=== PATIENT | female | born 1990 | race Caucasian/White ===

== ENCOUNTER 2017-03-05 13:09 | Inpatient (IN) ==
[2017-03-05] MEDS ORDERED: ACETAMINOPHEN 325 MG TABLET PO PRN (13:18)
[2017-03-05] MEDS ORDERED: ONDANSETRON 4 MG/2 ML VIAL IV PRN (13:18)
[2017-03-05] MEDS ORDERED: MORPHINE 2 MG/1 ML SYRINGE IV PRN (13:23)
[2017-03-05] MEDS: SODIUM CHLORIDE 0.9% 1,000 ML IV SCH (17:30)
[2017-03-05] MEDS: CIPROFLOXACIN INJ 400 MG in PREMIX 1 EACH IV SCH (17:31)
[2017-03-05] MEDS ORDERED: PANTOPRAZOLE 40 MG VIAL IV ONE (18:30)
[2017-03-05] MEDS: metroNIDAZOLE INJ 500 MG in PREMIX 1 EACH IV SCH (18:42)
[2017-03-05] MEDS: HYDROmorphone 2 MG/1 ML VIAL IV PRN ×2 (18:43→21:22)
[2017-03-05] MEDS: PANTOPRAZOLE 40 MG VIAL IV SCH (21:08)
[2017-03-05] MEDS: DOCUSATE SODIUM 100 MG CAPSULE PO SCH (21:12)
[2017-03-06] MEDS: metroNIDAZOLE INJ 500 MG in PREMIX 1 EACH IV SCH ×3 (00:28→17:25)
[2017-03-06] MEDS: SODIUM CHLORIDE 0.9% 1,000 ML IV SCH ×4 (00:29→17:27)
[2017-03-06] MEDS: HYDROmorphone 2 MG/1 ML VIAL IV PRN ×2 (01:45→06:44)
[2017-03-06] MEDS: CIPROFLOXACIN INJ 400 MG in PREMIX 1 EACH IV SCH ×2 (03:43→16:49)
[2017-03-06 07:16] LABS: Basophils # 0.1 10*3/uL (0.0-0.2); Basophils % 0.5 % (0.0-0.8); Eosinophils # 0.2 10*3/uL (0.0-0.87); Eosinophils % 1.6 % (0.00-10.9); Hematocrit 43.6 VOL% (35.7-47.0); Hemoglobin 13.1 GM/DL (12.0-16.0); Immature Granulocytes % 1.2 %; Immature Granulocytes Absolute 0.15 #; Lymphocytes # 2.4 10*3/uL (1.4-4.0); Lymphocytes % 19.7 % (21.3-54.2); Mean Corpuscular Hemoglobin 24 PG (27-34); Mean Corpuscular Volume 79.3 FL (87-102); Mean Platelet Volume 10.1 FL (9.6-12.0); Monocytes # 0.7 10*3/uL (0.11-0.8); Monocytes % 5.5 % (1.7-12.7); Neutrophils # 8.8 10*3/uL (1.4-7.4); Neutrophils % 71.5 % (38.7-73.9); Platelet Count 235 T/CUMM (130-400); Red Cell Distribution Width 15.9 % (9.3-17.3); White Blood Count 12.3 T/CUMM (4-12)
[2017-03-06 07:18] LABS: Calcium 8.5 MG/DL (8.5-10.1); Osmolality,Calculated 280.1 MOS/KG (273-304); Potassium 4.3 MMOL/L (3.5-5.1)
[2017-03-06 07:26] LABS: Band Neutrophils 8 % (0-10); Eosinophils 5 % (0-10); Lymphocytes 19 % (20-55); Nucleated Red Blood Cells 1 (0-5); Segmented Neutrophils 61 % (50-85); Total Cells Counted 100
[2017-03-06 07:27] LABS: Anisocytosis 1+; Poikilocytosis 1+
[2017-03-06 07:28] LABS: Hypochromasia 1+
[2017-03-06] MEDS ORDERED: traMADol 50 MG TABLET PO PRN (08:09)
[2017-03-06] MEDS ORDERED: PANTOPRAZOLE 40 MG TABLET PO SCH (09:00)
[2017-03-06] MEDS: DOCUSATE SODIUM 100 MG CAPSULE PO SCH ×2 (10:04→21:46)
[2017-03-06] MEDS: KETOROLAC 30 MG/1 ML VIAL IV PRN ×2 (10:11→17:26)
[2017-03-06 15:53] LABS: Apearance,Urine Slightly Hazy (Clear); Bilirubin,Urine Negative (Negative); Blood, Urine Negative (Negative); Glucose,Urine (UA) Negative (Negative); Ketones,Urine Negative (Negative); Nitrite,Urine Negative (Negative); Protein,Urine Negative; RBC,Urine 1 /HPF (0-4); Squamous Epithelial Cell,Urine Occasional /HPF (0-10); Urine Color Yellow (Yellow); Urine Specific Gravity 1.015 (1.001-1.035); Urine Urobilinogen < 2.0 EU/DL (0.2-1.0); WBC,Urine 1 /HPF (0-6)
[2017-03-06] MEDS: PANTOPRAZOLE 40 MG VIAL IV SCH (21:45)
[2017-03-07] MEDS: SODIUM CHLORIDE 0.9% 1,000 ML IV SCH ×2 (00:39→04:11)
[2017-03-07] MEDS: KETOROLAC 30 MG/1 ML VIAL IV PRN (00:40)
[2017-03-07] MEDS: metroNIDAZOLE INJ 500 MG in PREMIX 1 EACH IV SCH ×2 (00:42→10:06)
[2017-03-07] MEDS: CIPROFLOXACIN INJ 400 MG in PREMIX 1 EACH IV SCH (04:27)
[2017-03-07 05:36] LABS: Basophils # 0.1 10*3/uL (0.0-0.2); Basophils % 0.5 % (0.0-0.8); Eosinophils # 0.2 10*3/uL (0.0-0.87); Eosinophils % 1.8 % (0.00-10.9); Hematocrit 35.6 VOL% (35.7-47.0); Hemoglobin 10.6 GM/DL (12.0-16.0); Immature Granulocytes % 1.2 %; Immature Granulocytes Absolute 0.15 #; Lymphocytes # 3.1 10*3/uL (1.4-4.0); Lymphocytes % 24.4 % (21.3-54.2); Mean Corpuscular HGB Conc 29.8 GM/DL (32-36); Mean Corpuscular Hemoglobin 24 PG (27-34); Mean Corpuscular Volume 79.3 FL (87-102); Mean Platelet Volume 9.4 FL (9.6-12.0); Monocytes # 0.7 10*3/uL (0.11-0.8); Monocytes % 5.7 % (1.7-12.7); Neutrophils # 8.3 10*3/uL (1.4-7.4); Neutrophils % 66.4 % (38.7-73.9); Platelet Count 433 T/CUMM (130-400); Red Blood Count 4.49 MC/CUMM (3.8-5.5); Red Cell Distribution Width 15.4 % (9.3-17.3); White Blood Count 12.5 T/CUMM (4-12)
[2017-03-07 06:00] LABS: Calcium 8.2 MG/DL (8.5-10.1); Osmolality,Calculated 282.1 MOS/KG (273-304); Potassium 4.5 MMOL/L (3.5-5.1)
[2017-03-07] MEDS: DOCUSATE SODIUM 100 MG CAPSULE PO SCH (10:06)
[2017-03-07] MEDS ORDERED: FLUCONAZOLE 100 MG TABLET PO SCH (11:30)
[2017-03-07 11:53] VITALS: BP 134/61
== END 2017-03-07 13:55 | disposition home or self-care (01) | DRG 392 ==
LOC: N.2E 14:43
PROVIDERS: ADMIT Internal Medicine; ATTEND Internal Medicine

== ENCOUNTER 2020-08-03 10:25 | Inpatient (IN) ==
[2020-08-03] MEDS ORDERED: LACTATED RINGERS 1,000 ML IV PRN (15:20)
[2020-08-03] MEDS ORDERED: ONDANSETRON 4 MG/2 ML VIAL IV PRN (15:20)
[2020-08-03 15:54] LABS: Basophils # 0.1 10*3/uL (0.0-0.2); Basophils % 0.4 % (0.0-0.8); Eosinophils # 0.1 10*3/uL (0.0-0.87); Eosinophils % 0.7 % (0.00-10.9); Hematocrit 36.9 VOL% (35.7-47.0); Hemoglobin 11.7 GM/DL (12.0-16.0); Immature Granulocytes % 1.3 %; Immature Granulocytes Absolute 0.24 #; Mean Corpuscular HGB Conc 31.7 GM/DL (32-36); Mean Corpuscular Volume 83.3 FL (87-102); Monocytes % 7.4 % (1.7-12.7); Neutrophils % 74.2 % (38.7-73.9); Platelet Count 366 T/CUMM (130-400); Red Blood Count 4.43 MC/CUMM (3.8-5.5); Red Cell Distribution Width 14.9 % (9.3-17.3); White Blood Count 18.5 T/CUMM (4-12)
[2020-08-03 15:56] LABS: Bilirubin,Direct 0.1 MG/DL (0.0-0.20); Uric Acid 5.7 MG/DL (2.6-6.0)
[2020-08-03 16:08] LABS: Alanine Aminotransferase 27 U/L (13-56); Albumin 2.7 G/DL (3.4-5.0); Alkaline Phosphatase 91 U/L (45-117); Aspartate Amino Transferase 12 U/L (0-37); Bilirubin,Total < 0.39 MG/DL (0.2-1.0); Blood Urea Nitrogen 14 MG/DL (7-18); Calcium 8.5 MG/DL (8.5-10.1); Carbon Dioxide 26 MMOL/L (21-32); Estimated Glom Filtration Rate 190 ML/MIN; Glucose 68 MG/DL (74-106); Osmolality,Calculated 277.4 MOS/KG (273-304); Potassium 3.8 MMOL/L (3.5-5.1); Sodium 140 MMOL/L (136-145); Total Protein 6.6 G/DL (6.4-8.2)
[2020-08-03 16:10] LABS: PT Patient Result 11.1 SECS (10.5-12.0); Partial Thromboplastin Time 24.5 SECS (23.9-33.8)
[2020-08-04] MEDS ORDERED: CLINDAMYCIN INJ 900 MG/50 ML PREMIX IV ONE (10:29)
[2020-08-04] MEDS ORDERED: CITRIC ACID/SODIUM CITRATE 30 ML UDCUP PO ONE (10:29)
[2020-08-04] MEDS ORDERED: FAMOTIDINE 20 MG/2 ML VIAL IV ONE (10:29)
[2020-08-04] MEDS ORDERED: OXYTOCIN/LR 20 UNIT/1,000 ML BAG IV ONE ×2 (10:38→12:32)
[2020-08-04] MEDS ORDERED: TRANEXAMIC ACID 1,000 MG/10 ML VIAL ONE (10:39)
[2020-08-04] MEDS ORDERED: miSOPROStoL 200 MCG TABLET ONE (10:39)
[2020-08-04] MEDS ORDERED: CARBOPROST TROMETHAMINE 250 MCG/ML AMP IM ONE (10:39)
[2020-08-04] MEDS ORDERED: DEXAMETHASONE 4 MG/1 ML VIAL ONE (10:41)
[2020-08-04] MEDS ORDERED: BUPIVACAINE SPINAL 0.75% 2 ML AMP SPINAL ONE (10:41)
[2020-08-04] MEDS ORDERED: ONDANSETRON 4 MG/2 ML VIAL ONE (10:41)
[2020-08-04] MEDS ORDERED: ACETAMINOPHEN INJ 1,000 MG/100 ML VIAL IV ONE (10:42)
[2020-08-04] MEDS ORDERED: KETOROLAC 30 MG/1 ML VIAL ONE (10:42)
[2020-08-04] MEDS ORDERED: fentaNYL 100 MCG/2 ML VIAL ONE (11:58)
[2020-08-04 12:01] LABS: Cord Arterial Blood HCO3 24.3 MMOL/L
[2020-08-04 12:03] LABS: Cord Venous Blood PCO2 49.4 MMHG; Cord Venous Blood PO2 28.3 MMHG
[2020-08-04 12:07] LABS: Bilirubin,Urine Negative (Negative); Blood, Urine Negative (Negative); Glucose,Urine (UA) Negative (Negative); Ketones,Urine 5 mg/dL (Negative); Mucus,Urine Occasional /LPF (Occasional); Nitrite,Urine Negative (Negative); Protein,Urine Negative; RBC,Urine 1 /HPF (0-4); Squamous Epithelial Cell,Urine Occasional /HPF (0-10); Urine Appearance CLEAR (Clear); Urine Color Yellow (Yellow); Urine Specific Gravity 1.011 (1.001-1.035); Urine Urobilinogen < 2.0 EU/DL (0.2-1.0)
[2020-08-04] MEDS ORDERED: PHENYLEPHRINE 1 MG/10 ML SYRINGE IV ONE (12:13)
[2020-08-04] MEDS ORDERED: ACETAMINOPHEN 325 MG TABLET PO PRN (12:32)
[2020-08-04] MEDS ORDERED: RHO(D) IMMUNE GLOBULIN 300 MCG SYRINGE IM ONE (12:32)
[2020-08-04] MEDS ORDERED: ONDANSETRON 4 MG/2 ML VIAL IV PRN (12:32)
[2020-08-04] MEDS ORDERED: oxyCODONE/ACETAMINOPHEN 5-325 MG TABLET PO PRN (12:34)
[2020-08-04] MEDS ORDERED: LACTATED RINGERS 1,000 ML IV SCH (13:00)
[2020-08-04] MEDS: oxyCODONE/ACETAMINOPHEN 5-325 MG TABLET PO PRN (17:45)
[2020-08-04] MEDS ORDERED: KETOROLAC 30 MG/1 ML VIAL IV SCH (18:00)
[2020-08-04] MEDS: ACETAMINOPHEN 500 MG TABLET PO SCH (19:09)
[2020-08-04] MEDS ORDERED: KETOROLAC 30 MG/1 ML VIAL IM ONE (19:53)
[2020-08-04] MEDS: CLINDAMYCIN INJ 900 MG/50 ML PREMIX IV SCH (20:47)
[2020-08-04 21:15] LABS: Basophils % 0.2 % (0.0-0.8); Eosinophils # 0.2 10*3/uL (0.0-0.87); Eosinophils % 0.9 % (0.00-10.9); Hematocrit 34.9 VOL% (35.7-47.0); Hemoglobin 10.8 GM/DL (12.0-16.0); Immature Granulocytes % 0.9 %; Immature Granulocytes Absolute 0.15 #; Lymphocytes # 2.6 10*3/uL (1.4-4.0); Lymphocytes % 15.1 % (21.3-54.2); Mean Corpuscular HGB Conc 30.9 GM/DL (32-36); Mean Corpuscular Volume 83.5 FL (87-102); Mean Platelet Volume 9.7 FL (9.6-12.0); Monocytes % 5.5 % (1.7-12.7); Neutrophils % 77.4 % (38.7-73.9); Platelet Count 324 T/CUMM (130-400); Red Blood Count 4.18 MC/CUMM (3.8-5.5); Red Cell Distribution Width 15.3 % (9.3-17.3); White Blood Count 17.2 T/CUMM (4-12)
[2020-08-04] MEDS: DOCUSATE SODIUM 100 MG CAPSULE PO SCH (21:39)
[2020-08-04] MEDS: PROPRANOLOL 40 MG TABLET PO SCH (23:18)
[2020-08-05] MEDS: ACETAMINOPHEN 500 MG TABLET PO SCH ×2 (00:40→06:27)
[2020-08-05] MEDS: KETOROLAC 30 MG/1 ML VIAL IV SCH ×2 (02:06→10:50)
[2020-08-05] MEDS: oxyCODONE/ACETAMINOPHEN 5-325 MG TABLET PO PRN ×3 (03:33→22:15)
[2020-08-05] MEDS: CLINDAMYCIN INJ 900 MG/50 ML PREMIX IV SCH (04:26)
[2020-08-05] MEDS: SIMETHICONE CHEW 80 MG TABLET PO PRN ×2 (04:26→20:29)
[2020-08-05 06:24] LABS: Basophils # 0.1 10*3/uL (0.0-0.2); Basophils % 0.3 % (0.0-0.8); Eosinophils # 0.2 10*3/uL (0.0-0.87); Eosinophils % 1.4 % (0.00-10.9); Immature Granulocytes % 0.9 %; Immature Granulocytes Absolute 0.15 #; Lymphocytes # 2.5 10*3/uL (1.4-4.0); Lymphocytes % 15.7 % (21.3-54.2); Mean Corpuscular HGB Conc 31.4 GM/DL (32-36); Mean Corpuscular Volume 84.3 FL (87-102); Mean Platelet Volume 9.6 FL (9.6-12.0); Monocytes % 6.4 % (1.7-12.7); Neutrophils % 75.3 % (38.7-73.9); Platelet Count 358 T/CUMM (130-400); Red Blood Count 4.15 MC/CUMM (3.8-5.5); Red Cell Distribution Width 15.2 % (9.3-17.3)
[2020-08-05] MEDS: MULTIVITAMIN (PRENATAL) TABLET PO SCH (09:46)
[2020-08-05] MEDS: IBUPROFEN 800 MG TABLET PO PRN ×2 (09:46→19:21)
[2020-08-05] MEDS: PROPRANOLOL 40 MG TABLET PO SCH ×2 (09:46→20:29)
[2020-08-05] MEDS: DOCUSATE SODIUM 100 MG CAPSULE PO SCH ×2 (09:46→20:29)
[2020-08-05] MEDS: ENOXAPARIN 40 MG/0.4 ML SYRINGE SUBCUT SCH (17:15)
[2020-08-05] MEDS: MAGNESIUM HYDROXIDE SUSP 30 ML UDCUP PO PRN (20:29)
[2020-08-06] MEDS: oxyCODONE/ACETAMINOPHEN 5-325 MG TABLET PO PRN ×3 (03:56→22:58)
[2020-08-06] MEDS: IBUPROFEN 800 MG TABLET PO PRN ×2 (03:56→20:34)
[2020-08-06] MEDS: PROPRANOLOL 40 MG TABLET PO SCH ×2 (08:37→20:33)
[2020-08-06] MEDS: MULTIVITAMIN (PRENATAL) TABLET PO SCH (09:00)
[2020-08-06] MEDS: ENOXAPARIN 40 MG/0.4 ML SYRINGE SUBCUT SCH (16:44)
[2020-08-06] MEDS: MAGNESIUM HYDROXIDE SUSP 30 ML UDCUP PO PRN (20:33)
[2020-08-06] MEDS: DOCUSATE SODIUM 100 MG CAPSULE PO SCH (20:34)
[2020-08-07] MEDS ORDERED: FUROSEMIDE 40 MG/4 ML VIAL IV ONE (09:18)
[2020-08-07] MEDS ORDERED: hydroCHLOROthiazide 12.5 MG CAPSULE PO SCH (10:00)
[2020-08-07] MEDS: MULTIVITAMIN (PRENATAL) TABLET PO SCH (10:09)
[2020-08-07] MEDS: DOCUSATE SODIUM 100 MG CAPSULE PO SCH (10:10)
[2020-08-07] MEDS: PROPRANOLOL 40 MG TABLET PO SCH (10:10)
[2020-08-07 11:25] VITALS: BP 141/61
== END 2020-08-07 14:52 | disposition home or self-care (01) | DRG 784 ==
LOC: N.LDOUT 10:25 → N.LD 10:26 → N.OB 08-04 17:36
PROVIDERS: ADMIT Obstetrics & Gynecology; ATTEND Obstetrics & Gynecology